=== PATIENT | female | born 1950 | race Caucasian/White ===

== ENCOUNTER 2017-09-08 07:19 | Day surgery (SDC) | payer OTHER ==
[2017-09-08] MEDS ORDERED: MEPERIDINE 25 MG/ML SYR IVP PRN (08:27)
[2017-09-08] MEDS ORDERED: PROTAMINE SULFATE 50 MG/5 ML VIAL IVP PRN (08:27)
[2017-09-08] MEDS ORDERED: ALTEPLASE 2 MG VIAL IVP PRN (08:27)
[2017-09-08] MEDS ORDERED: fentaNYL 100 MCG/2 ML INJ IVP PRN (08:27)
[2017-09-08] MEDS ORDERED: NALOXONE HCL 0.4 MG/ML INJ IVP PRN (08:27)
[2017-09-08] MEDS ORDERED: GLUCAGON HCL 1 MG VIAL IVP PRN (08:27)
[2017-09-08] MEDS ORDERED: HEPARIN 10,000 UNIT/10 ML MDV (1,000 UNIT/ML) IVP PRN (08:27)
[2017-09-08] MEDS ORDERED: FLUMAZENIL 0.5 MG/5 ML MDV IVP PRN (08:27)
[2017-09-08] MEDS ORDERED: MIDAZOLAM 2 MG/2 ML VIAL IVP PRN (08:27)
[2017-09-08] MEDS ORDERED: NS 1,000 ML IV SCH (08:30)
[2017-09-08 09:57] LABS: INR 0.99 (0.83-1.16); PROTIME(PATIENT) 13.3 SEC (12.0-15.0)
[2017-09-08] MEDS ORDERED: fentaNYL 100 MCG/2 ML INJ ONE (10:22)
[2017-09-08] MEDS ORDERED: MIDAZOLAM 2 MG/2 ML VIAL ONE (10:23)
--- NOTE | 2017-09-08 10:31 | PDGENHP ---
History & Physical Chief Complaint: LLE swelling and pain History of Present Illness: 66 yo F w h/o hypothyroidism and left TKA presents c /o LLE swelling below the left knee which began following left TKA ~3 yrs ago and has gotten worse over the past 6 mos. She underwent DVT US shortly after surg which was neg. She says it is only minimally improved in the morning, and worsens as she begins to walk. She endorses LLE pain, swelling, skin thickening and discoloration, and occasional numbness in her toes after prolonged periods of standing. She has tried compressions stockings but has been unable to tolerate them. 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
--- NOTE | 2017-09-08 10:31 | PDPROPOC ---
Sedation Plan of Care Sedation Plan of Care: vital signs stable, mental status noted, patient educated of risks, benefits, alternatives, patient can tolerate sedation ASA Classification: ASA 2 Planned drugs: fentanyl, midazolam Mallampati Score: Class 1 Mallampati Reference Image: Patient passed 3-3-2 rule?: Yes
[2017-09-08] MEDS ORDERED: IOPAMIDOL (ISOVUE-300) 100 ML BTL ONE (11:17)
[2017-09-08] MEDS ORDERED: ACETAMINOPHEN 325 MG TAB PO PRN (11:20)
[2017-09-08] MEDS ORDERED: ONDANSETRON 4 MG/2 ML VIAL IVP PRN (11:20)
--- NOTE | 2017-09-08 11:27 | PDRADPN ---
Radiology Procedure Note Date of Procedure: 09/08/17 Radiologist: Mina Anderson Anesthesia: IV Sedation Pre-op Diagnosis: LLE swelling Post-op Diagnosis: Same Indication: LLE swelling Procedure: LLE and pelvic venography Finding(s): See dictated report Inf/Abcess present in the surg proc area at time of surgery?: No EBL: Minimal Complications: No immediate Specimen(s): None taken
[2017-09-08 11:33] VITALS: PULSE 58
[2017-09-08 13:27] VITALS: BP 130/63; RESP 14; O2SAT 95
== END 2017-09-08 13:45 | disposition home or self-care (01) ==
LOC: FIMAGING 07:19
PROVIDERS: ATTEND Orthopaedic Surgery
PROC: 06HD33Z Insertion of Infusion Device into Left Common Iliac Vein, Percutaneous Approach (ICD-10-PCS; principal; 2017-09-08 11:20)
PROC: 06HG33Z Insertion of Infusion Device into Left External Iliac Vein, Percutaneous Approach (ICD-10-PCS; principal; 2017-09-08 11:20)
PROC: 06H033Z Insertion of Infusion Device into Inferior Vena Cava, Percutaneous Approach (ICD-10-PCS; principal; 2017-09-08 11:20)
DX: R22.42 Localized swelling, mass and lump, left lower limb (principal); M79.662 Pain in left lower leg; E03.9 Hypothyroidism, unspecified; Z96.652 Presence of left artificial knee joint
CPT/HCPCS: 36010; 36011; 36012; 75820; 93971; C1769; C1894; J1644; J2250; J3010; Q9967

== ENCOUNTER → 2017-09-10 | Outpatient (CLI) | payer OTHER | LOC: FIMAGING 14:37 | PROVIDERS: ATTEND Radiology Diagnostic Radiology | DX: M25.472 Effusion, left ankle (principal) ==

== ENCOUNTER 2018-10-31 17:07 | Emergency (ER) | payer OTHER ==
--- NOTE | 2018-10-31 17:53 | EDPHY ---
H & P Time Seen by Provider: 10/31/18 17:36 HPI/ROS: This patient complains of a 5 day history of cough this primarily been a dry cough exception of mild sputum production this morning-yellowish. She reports pain only when she coughs a feels achy in nature. She does also report some pleuritic pain but no pain between breaths or coughs. She reports associated fatigue sleeping more than usual during this illness. She has also had fevers and chills. She had myalgias the 1st few days the illness as well. She finally describes a frontal headache similar to prior headaches 3/10 intensity that seems to wax and wane with fevers. She took ibuprofen this morning with partial relief of fever and headache and notes no other exacerbating or alleviating factors. She did vomit yesterday and she attributed that to gagging from a cough. She also reports that she took some [id number]-[id number] medications the tasted foul to her and thinks she might have had vomiting in part due to the uwriftacak-wkdp-ipo-counter cold medication. No vomiting today. She tolerated p.o. Intake without emesis. She does have loose stools in addition and reports no other complaints. She is accompanied by her brought her in by private vehicle. ROS: Constitutional: Fevers and chills, fatigue HEENT: Mild left ear discomfort. No sore throat. No sinus pain or nasal congestion. Pulmonary: No hemoptysis. No respiratory distress though she does have some dyspnea. Cardiovascular: No chest pain at rest. No heart palpitations. No lower extremity pain. She does have mild chronic left leg swelling from lymphedema but no change in the severity recently. GI: No abdominal pain. No hemoptysis. : No complaints integumentary: No rash or pallor 10 point review of symptoms is performed and otherwise negative with exception of pertinent positives and negatives listed in HPI and ROS Smoking Status: Never smoked Physical Exam: General Appearance: Alert, no distress. Eyes: Pupils equal and round no pallor or injection. ENT, Mouth: Mucous membranes moist. Ears: Clear bilaterally no sinus tenderness to percussion. Oropharynx is clear with no erythema or exudates. Respiratory: Rales at the left base. Mild wheezing bilaterally. No respiratory distress. Cardiovascular: Regular rate and rhythm. No murmur gallop rub. No JVD. No significant peripheral edema no calf tenderness. Gastrointestinal: Abdomen is soft and nontender, no masses, bowel sounds normal. Neurological: GCS 15. Skin: Warm and dry, no rashes. Musculoskeletal: Neck is supple nontender. Extremities are symmetrical, full range of motion. Psychiatric: Mood and affect are normal DIFFERENTIAL DIAGNOSIS: After history and physical exam differential diagnosis was considered for pneumonia, influenza, acute bronchitis Constitutional: Initial Vital Signs Temperature (C) 37.6 C 10/31/18 17:19 Heart Rate 74 10/31/18 17: Respiratory Rate 18 10/31/18 17:19 Blood Pressure 144/77 H 10/31/18 17:19 O2 Sat (%) 91 L 10/31/18 17:19 O2 Delivery Mode Room Air Allergies/Adverse Reactions: Yytawhb-Wnk-Xqk Reductase Inhibitor Allergy (Severe, Verified 10/31/18 17:25) MUSCLE CRAMPS codeine Allergy (Verified 10/31/18 17:25) Home Medications: Medication Instructions Recorded Levothyroxine [Synthroid 50 mcg 50 mcg PO DAILY06 11/27/14 (*)] Aspirin [Aspirin 81mg (*)] 81 mg PO DAILY 16 Albuterol Hfa Anes Only [Proair 2 puffs IH Q4 PRN #1 mdi 10/31/18 Hfa Icu (*)] Azithromycin [Zithromax] 250 mg PO DAILY #4 tab 10/31/18 Benzonatate [Tessalon Pearles (RX)] 100 - 200 mg PO TID PRN #20 cap 10/31/18 Fluconazole [Diflucan] 200 mg PO ONCE #2 tablet 10/31/18 MDM/Departure - MDM Diagnostics: POC flu swab is negative. Imaging Results: Imaging Impressions Chest X-Ray 10/31/18 17:30 Impression: Stable mild cardiomegaly. No evidence for acute cardiopulmonary abnormality. Two view chest x-ray: No pneumonia by my interpretation Imaging: I viewed and interpreted images myself Medications Given: Discontinued Medications Acetaminophen (Tylenol) 1,000 mg PO EDNOW ONE Stop: 10/31/18 17:56 Last Admin: 10/31/18 18:40 Dose: Not Given Azithromycin (Zithromax) 500 mg PO EDNOW ONE PRN Reason: Protocol Stop: 10/31/18 18:50 Last Admin: 10/31/18 19:10 Dose: 500 mg ED Course/Re-evaluation: Nasal swab for influenza Zithromax p. O. Findings are consistent with bronchitis. Rule out pneumonia with chest x-ray and influenza with negative rapid flu . Will plan to treat her with Zithromax, albuterol follow up primary care physician. She understands need to return should she develop any significant worsening despite treatment plan. - Depart Disposition: Home, Routine, Self-Care Clinical Impression: Acute bronchitis Qualifiers: Bronchitis organism: unspecified organism Qualified Code(s): J20.9 - Acute bronchitis, unspecified Condition: Good Instructions: Acute Bronchitis (ED) Additional Instructions: Diagnosis: Acute bronchitis Plan: Humidifier Ibuprofen Tylenol if needed for fevers Zithromax antibiotic Albuterol inhaler for cough, wheeze or shortness of breath Tessalon Perles for cough prevents sleep Diflucan if needed for yeast infection from antibiotic Follow up with primary care physician for any ongoing symptoms that persist beyond the next 5 days Return emergency department for any significant worsening despite the treatment plan. Stand Alone Forms: Work Excuse Prescriptions: Albuterol Hfa Anes Only [Proair Hfa Icu (*)] 2 puffs IH Q4 PRN #1 mdi PRN Reason: Wheezing Azithromycin [Zithromax] 250 mg PO DAILY #4 tab Benzonatate [Tessalon Pearles (RX)] 100 - 200 mg PO TID PRN #20 cap PRN Reason: cough Fluconazole [Diflucan] 200 mg PO ONCE #2 tablet Referrals: Richelle Rivera MD [Primary Care Provider] - As per Instructions
[2018-10-31] MEDS ORDERED: ACETAMINOPHEN 500 MG TAB PO ONE (17:55)
[2018-10-31] MEDS ORDERED: AZITHROMYCIN 250 MG TAB PO ONE (18:49)
[2018-10-31 19:10] VITALS: BP 159/98
== END 2018-10-31 19:15 | disposition home or self-care (01) ==
LOC: CED 17:07
DX: J20.9 Acute bronchitis, unspecified (principal)
CPT/HCPCS: 71046-PO; 87400-QW-ER; 99284-ER

== ENCOUNTER 2018-11-11 17:13 | Emergency (ER) | payer OTHER ==
[2018-11-11] MEDS ORDERED: IPRATROPIUM/ALBUTEROL 3 ML DEYVIAL IH ONE (17:39)
--- NOTE | 2018-11-11 17:53 | EDPHY ---
H & P Time Seen by Provider: 11/11/18 17:17 HPI/ROS: I saw this patient 11 days ago here with cough. At that time she had negative influenza POC swab and a chest x-ray which showed stable mild cardiomegaly no other acute cardiopulmonary process in clinically had findings consistent with bronchitis. I prescribed albuterol and Zithromax for her. She took the Zithromax but used her son's nebulizer instead of the albuterol script which she reports would coughs or 100 dollars but her son left hand 2 days ago. She reports that she did feel improvement from the nebulizer but over the past 2 days has had worsening of her cough and chest tightness. She describes the chest tightness as causing mild discomfort which she ranks as moderate to more severe and is currently 7/10 in intensity. She describes this as "heaviness". She does have some wheezing associated with this and reports the wheezing is improved but still persists. She reports that she did have colored sputum until she took the Zithromax which then turned to white sputum is now cleared entirely. She now has a dry hacky cough. She came in by private vehicle today for evaluation of the symptoms. ROS: Constitutional: No fevers or chills recently. HEENT: No nasal congestion at this point. No sinus pain or sore throat. Pulmonary: No pleuritic pain or hemoptysis. Cardiovascular: No heart palpitations lightheadedness or leg swelling. GI: No nausea vomiting. No diarrhea. Musculoskeletal: No myalgias. Integumentary: No skin rash 10 point review of symptoms is performed and otherwise negative with exception of pertinent positives and negatives listed in HPI and ROS Past Medical/Surgical History: No prior history of asthma. 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 Eyes: Pupils equal and round no pallor or injection. ENT, Mouth: Mucous membranes moist. Respiratory: She is a dry cough with mild bilateral wheezing on expiration. No rales or rhonchi appreciated. Cardiovascular: Regular rate and rhythm. No JVD. No peripheral edema. Gastrointestinal: Abdomen is soft and nontender, no masses, bowel sounds normal. Neurological: GCS 15. Skin: Warm and dry, no rashes. Musculoskeletal: Neck is supple nontender. Extremities are symmetrical, full range of motion. Psychiatric: Mood and affect are normal DIFFERENTIAL DIAGNOSIS: After history and physical exam differential diagnosis was considered for persistent bronchitis, reactive airways, CHF Constitutional: Initial Vital Signs Temperature (C) 36.8 C 11/11/18 17:19 Heart Rate 70 11/11/18 17:19 Respiratory Rate 18 11/11/18 17:19 Blood Pressure 149/76 H 11/11/18 17:19 O2 Sat (%) 93 11/11/18 17:19 O2 Delivery Mode Room Air Allergies/Adverse Reactions: Hnyxlou-Fpg-Kwy Reductase Inhibitor Allergy (Severe, Verified 11/11/18 17:22) MUSCLE CRAMPS codeine Allergy (Verified 11/11/18 17:22) Home Medications: Medication Instructions Recorded Levothyroxine [Synthroid 50 mcg 50 mcg PO DAILY06 11/27/14 (*)] Aspirin [Aspirin 81mg (*)] 81 mg PO DAILY 04/18/16 Albuterol Hfa Anes Only [Proair 2 puffs IH Q4 PRN #1 mdi 10/31/18 Hfa Icu (*)] Azithromycin [Zithromax] 250 mg PO DAILY #4 tab 10/31/18 Benzonatate [Tessalon Pearles (RX)] 100 - 200 mg PO TID PRN #20 cap 10/31/18 Fluconazole [Diflucan] 200 mg PO ONCE #2 tablet 10/31/18 Albuterol Hfa Anes Only [Proair 2 puffs IH Q4 PRN #1 mdi 11/11/18 Hfa Icu (*)] Albuterol [Proventil Neb] 3 ml IH Q4 #25 deyvial 11/11/18 Fluticasone Hfa 220 Mcg [Flovent 2 puffs IH DAILY #1 mdi 11/11/18 220 MCG Hfa MDI (*)] predniSONE 60 mg PO DAILY #15 tab 11/11/18 MDM/Departure - MDM Diagnostics: 12 lead EKG performed shortly after arrival indication chest tightness performed at 5:49 p.m. Reveals sinus rhythm at [address] ST segments: Normal throughout Intervals: Normal throughout [place]: Normal throughout Overall assessment: Normal EKG Medications Given: Discontinued Medications Albuterol/Ipratropium (Duoneb) 3 ml IH EDNOW ONE Stop: 11/11/18 17:40 Last Admin: 11/11/18 17:57 Dose: 3 ml ED Course/Re-evaluation: The patient's peak flows low at 210 with predicted of 400. DuoNeb with subjective improvement and decreased wheeze thereafter. Patient fell subjective the improved with decreased wheezing on re-examination increased aeration. Her repeat peak flow is improved to 250 Discussion: Patient presents with wheezing and dyspnea with tightness that I think is attributable to bronchial constriction that is reversible with beta agonist consistent with reactive airway disease. I counseled regarding this some detail. Currently she has no clinical evidence of lower respiratory infection. Her EKG is normal and not think that she has acute cardiac ischemia causing her symptoms. She reports that she has had improvement with nebulizers for URIs with cough and wheeze in the past I suspect that she has previously undiagnosed reactive airway disease. - Depart Disposition: Home, Routine, Self-Care Clinical Impression: Reactive airway disease Qualifiers: Asthma severity: mild Asthma persistence: intermittent Asthma complication type : with acute exacerbation Qualified Code(s): J45.21 - Mild intermittent asthma with (acute) exacerbation Condition: Good Instructions: Reactive Airways Disease (ED) Additional Instructions: Diagnosis: Reactive airway disease Plan: Humidifier Albuterol inhaler or nebulizer every 4 hr as needed for cough, wheeze or shortness of breath Flovent steroid inhaler and/or prednisone steroid to diminish inflammation or bronchi that persist despite treatment of her bronchitis. Periodically check your peak flow was you improve. Call your primary care physician to arrange follow-up appointment for recheck within the next 3-7 days. Return for any significant worsening despite treatment plan Referrals: Richelle Rivera MD [Primary Care Provider] - As per Instructions
--- NOTE | 2018-11-11 18:06 | CPEKG ---
Test Reason : OPEN Blood Pressure : / mmHG Vent. Rate : 065 BPM Atrial Rate : 065 BPM P-R Int : 185 ms QRS Dur : 095 ms QT Int : 444 ms P-R-T Axes : 015 -09 048 degrees QTc Int : 462 ms Sinus rhythm Confirmed by Kelsie Chao ([id number]) on 11/11/2018 6:06:06 PM Referred By: KELSIE CHAO Confirmed By:Kelsie Chao
[2018-11-11 19:16] VITALS: BP 170/100
== END 2018-11-11 18:50 | disposition home or self-care (01) ==
LOC: CED 17:13
DX: J45.21 Mild intermittent asthma with (acute) exacerbation (principal)
CPT/HCPCS: 99283-ER